=== PATIENT | female | born 1995 | race African-American/Black ===

== ENCOUNTER 2019-02-03 23:34 | Emergency (ER) | payer OTHER ==
[~2019-02-03] VITALS: Ht 152.4 cm; Wt 74.8 kg
[2019-02-04 02:06] VITALS: BP 110/75
== END 2019-02-04 02:18 | disposition home or self-care (01) ==
LOC: ER 23:34
DX: S00.532A Contusion of oral cavity, initial encounter (principal); S80.211A Abrasion, right knee, initial encounter; V49.49XA Driver injured in collision with other motor vehicles in traffic accident, initial encounter; Y92.89 Other specified places as the place of occurrence of the external cause; Y93.89 Activity, other specified; Y99.8 Other external cause status